=== PATIENT | male | born 1985 | race Caucasian/White ===

== ENCOUNTER 2016-09-14 23:39 | Emergency (ER) | payer BC, OTHER ==
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
== END 2016-09-15 09:44 | disposition expired ==
LOC: MW.ED 23:39
DX: I46.9 Cardiac arrest, cause unspecified (principal); V86.99XA Unspecified occupant of other special all-terrain or other off-road motor vehicle injured in nontraffic accident, initial encounter; Y92.410 Unspecified street and highway as the place of occurrence of the external cause
CPT/HCPCS: 31500; 92950; 99285; G0390; 99283